=== PATIENT | female | born 1955 | race Caucasian/White ===

== ENCOUNTER 2016-04-05 17:23 | Emergency (ER) | payer MEDICAID, OTHER ==
[2016-04-05 17:30] VITALS: RESP 16
--- NOTE | 2016-04-05 19:08 | EDPHY ---
H & P Stated Complaint: Fell off a bed 04/01;c/o rib pain Time Seen by Provider: 04/05/16 19:08 - Personal History Current Tetanus Diphtheria and Acellular Pertussis (TDAP): Yes - Medical/Surgical History Hx Asthma: No Hx Chronic Respiratory Disease: No Hx Diabetes: No Hx Cardiac Disease: No Hx Renal Disease: No Hx Cirrhosis: No Hx Alcoholism: No Hx HIV/AIDS: No Hx Splenectomy or Spleen Trauma: No Other PMH: IBS, shingles, depression, hypothyroid, GERD - Social History Smoking Status: Former smoker Constitutional: Initial Vital Signs Temperature (C) 36.4 C 04/05/16 17:27 Heart Rate 62 04/05/16 17:27 Respiratory Rate 16 04/05/16 17:27 Blood Pressure 160/81 H 04/05/16 17:27 O2 Sat (%) 98 04/05/16 17:27 O2 Delivery Mode Room Air Allergies/Adverse Reactions: No Allergies [NKDA] Allergy (Verified 04/05/16 17:27) Home Medications: Medication Instructions Recorded Bentyl 01/18/10 Prozac 20 MG (RX) 07/30/14 Levothyroxine 12/26/15 Protonix 12/26/15 Bioidentical Hormones 03/14/16 Hydrocodone/APAP 5/325 [[place] 1 - 2 tab PO Q4H PRN #15 tab 03/14/16 5/325] Ondansetron Odt [Zofran Odt 4 mg 4 mg PO Q4 PRN #6 tab 03/14/16 (*)] Pantoprazole Sodium [Protonix 40mg 40 mg PO 03/14/16 (*)] Oxycodone HCl [Oxyir] 5 mg PO Q4-8PRN #20 capsule 04/05/16 oxyCODONE IR [Oxycodone Ir (*)] 5 mg PO Q4-6PRN PRN #30 tab 04/05/16 Medical Decision Making ED Course/Re-evaluation: CHIEF COMPLAINT: Rib and abdominal pain HISTORY OF PRESENT ILLNESS: The patient is a 60 y/o female complaining of worsening rib and abdominal pain secondary to a fall on 04/01/16, 4 days ago. She says she originally fell on fell on 03/12/16 getting into the bathtub and was ultimately diagnosed with multiple rib fractures on her right side. Four days ago she was assisting in lifting a friend's ill and fell off a bed onto her right side on top of a metal radiator. This worsened her existing rib pain significantly and she now complains of centralized abdominal pain. Her pain is aggravated by breathing and was not alleviated with Advil. REVIEW OF SYSTEMS: A 10 point review of systems was performed and is negative with the exception of the elements mentioned in the history of present illness. PHYSICAL EXAM: HR, BP, O2 Sat, RR. Temp noted General Appearance: Alert, well hydrated, appropriate, and non-toxic appearing. Head: Atraumatic without scalp tenderness or obvious injury Eyes: Pupils equal, round, reactive to light and accommodation, EOMI, no trauma , no injection. Ears: Clear bilaterally, no perforation, normal landmarks Nose: Atraumatic, no rhinorrhea, clear. Throat: There is no erythema or exudates, no lesions, normal tonsils, mucus membranes moist. Neck: Supple, 2+ carotid upstroke, nontender, no lymphadenopathy. Respiratory: No retractions, no distress, no wheezes, and no accessory muscle use. Lungs are clear to auscultation bilaterally. Cardiovascular: Regular rate and rhythm, no murmurs, rubs, or gallops. Bilateral carotid, radial, dorsalis pedis, and posterior tibial pulses intact. Good capillary refill all extremities. Gastrointestinal: Abdomen is soft, nontender, non-distended, no masses, no rebound, no guarding, no peritoneal signs. Musculoskeletal: Normal active ROM of all extremities. Right lateral mid-rib tenderness and bruising. Neurological: Alert, appropriate, and interactive. The patient has normal DTRs and non-focal cranial nerves, motor, sensory, and cerebellar exam. Skin: No rashes, good turgor, no nodules on palpation. Past medical history: Known liver lesion and lungs. Past surgical history: Noncontributory Family history: Noncontributory Social history: Lives in [place] DIAGNOSTICS/PROCEDURES/CRITICAL CARE TIME: Study: CT of the Chest Indication: Pain, trauma Results: CT scan of the chest was obtained. The results of the study are 1. Subacute nondisplaced anterior right 7th, 8th, and 9th rib fractures. 2. No pulmonary contusion or pneumothorax. 3. No acute rib or sternal fracture. The study was read by the radiologist, Dr. Gaspar. I viewed the images myself on the PACS system. Study: CT of the Abdomen/Pelvis Indication: Pain, trauma Results: CT scan of the abdomen was obtained. The results of the study are 1. No solid organ or bowel injury. 2. No free fluid. 3. No acute lumbar spine or pelvic fracture. The study was read by the radiologist, Dr. Gaspar. I viewed the images myself on the PACS system. DIFFERENTIAL DIAGNOSIS: The differential diagnosis for the patient's trauma included but was not limited to rib fractures, pneumothorax, spinal injury, intra-abdominal injury, and intra-thoracic injury. MEDICAL DECISION MAKING: This is a 60 y/o female with a recent history of multiple right rib fractures arriving for evaluation after a repeat injury of her right side from a fall 4 days ago. She complains of worsening rib pain and new abdominal pain. She has some mild tenderness and ecchymosis on her right lateral ribs on exam. Breath sounds are equal bilaterally. No other visible trauma. Plan for CT Chest and CT abdomen to rule out organ injury. She declines narcotic pain medication in the ED, but does request something to manage pain at home. CTs are unchanged from previous per Dr. Gaspar. Patient will be discharged home with rib fracture care instructions and script for OxyIR in addition to ibuprofen instructions. Advised to follow up with her PCP as needed. Return precautions given. She is comfortable with this plan. - Data Points Laboratory Results: 04/05/16 19:32 POC Hgb 14.6 gm/dL (12.3-15.9) POC Hct 43 % (35.5-47.5) POC Sodium 140 mEq/L (134-144) POC Potassium 3.4 mEq/L (3.3-5.0) POC Chloride 101 mEq/L (96-108) POC BUN 19 mg/dL (7-23) POC Creatinine 0.7 mg/dL (0.6-1.2) POC Glucose 129 H mg/dL (70-100) Point of Care Test Results: 04/05/16 19:32 POC Sodium 140 POC Potassium 3.4 POC Chloride 101 POC BUN 19 POC Creatinine 0.7 POC Glucose 129 H Departure - Departure Disposition: Home, Routine, Self-Care Clinical Impression: Rib fractures Qualifiers: Qualifier Code: (S22.41XA) Multiple fractures of ribs, right side, initial encounter for closed fracture Instructions: How to Use an Incentive Spirometer (ED), Rib Fracture (ED) Additional Instructions: 1. Use ibuprofen as prescribed for the next week. 2. Take OxyIR as prescribed when needed for pain. 3. Follow up with your primary care provider for symptoms not improved over the next few weeks. You will likely have pain for several weeks while your fractures heal. 4. Return to the ED for shortness of breath, severe pain, or other worsening of condition. Referrals: Phyllis Herr MD [Medical Doctor] - As per Instructions Prescriptions: oxyCODONE IR [Oxycodone Ir (*)] 5 mg PO Q4-6PRN PRN #30 tab PRN Reason: Pain, Moderate Oxycodone HCl [Oxyir] 5 mg PO Q4-8PRN #20 capsule Report Scribed for: Roberto Carlos Fuentes Report Scribed by: Perla Araujo Date of Report: 04/05/16 Time of Report: 21:01
[2016-04-05] MEDS ORDERED: IOPAMIDOL (ISOVUE-300) 50 ML VIAL IV ONE (19:42)
[2016-04-05] MEDS ORDERED: OXYCODONE/APAP 5/325MG PREPACK#4 BTL TAKEHOME ONE ×2 (20:48→20:55)
--- NOTE | 2016-04-05 20:53 | CT ---
CT Chest With Contrast - April 05, 2016 Indication: Right anterior chest wall pain. Exacerbation of low right rib fractures with recent fall. Technique: 5-mm thick collimated slices were obtained through the chest following uneventful adminis tration of 90 mL Isovue-300 Sagittal multiplanar reconstructions were performed of the thoracic spine . Dose reduction techniques were utilized. Comparison: Right rib series dated March 21, [address] abdomen and pelvis from July 30, 2014. Findings: Subacute nondisplaced anterior right 7th, 8th, and 9th rib fractures are present at the cos tochondral junction (similar to the right rib series from March 2016). No new rib fractures. The lungs are well aerated and clear. No pneumothorax, pleural effusion, or pulmonary contusion. A be nign 6-mm calcified granuloma is present in the left lower lobe. The heart size is normal. No pericardial effusion. Thoracic aorta is normal. No mediastinal hematoma or evidence of acute aortic injury. No lymphadenopathy or mass throughout the axilla, mediastinum or pulmonary veronica. Impression: 1. Subacute nondisplaced anterior right 7th, 8th, and 9th rib fractures. 2. No pulmonary contusion or pneumothorax. 3. No acute rib or sternal fracture. Comment: The results were discussed with Dr. Roberto Carlos Fuentes at 8:45 p.m. on April 05, 2016.
--- NOTE | 2016-04-05 20:55 | CT ---
CT Scan of the Abdomen and Pelvis (With Contrast) - April 05, 2016 Indication: Right upper quadrant pain. Fall. Technique: No oral or rectal contrast. 90 mL of Isovue 300 were given intravenously by machine power injection. Multidetector helical CT imaging was performed from the diaphragm to the symphysis pubis . Dose reduction techniques were utilized. Comparison: CT abdomen and pelvis dated July 30, 2014 and right rib series dated March 21, 2016. Findings: The liver homogeneously enhances. No liver laceration, contusion, or free fluid. Well circu mscribed benign fluid attenuation cysts in the lateral segment left lobe and a 1.6-cm hemangioma in t he dome of the right lobe are unchanged since July 2014. The spleen, pancreas, gallbladder, adrenal glands, and kidneys are normal with no evidence of solid o rgan injury. Small 0.8-cm fat attenuation angiomyolipomas in the posterior left mid kidney and inferi or right kidney are unchanged since 2014. No nephrolithiasis or hydroureteronephrosis. Urinary bladde r is nearly completely empty. No adnexal mass. Bowel pattern is normal. No mesenteric edema or pneumoperitoneum. Moderate constipation. No lumbar spine or pelvic fracture. Impression: 1. No solid organ or bowel injury. 2. No free fluid. 3. No acute lumbar spine or pelvic fracture. Comment: Results were discussed with Dr. Roberto Carlos Fuentes at 8:45 p.m. on April 05, 2016.
[2016-04-05 21:24] VITALS: BP 138/80; PULSE 85; TEMP 98.8; O2SAT 99
== END 2016-04-05 21:29 | disposition home or self-care (01) ==
DX: S22.41XA Multiple fractures of ribs, right side, initial encounter for closed fracture (principal); Z87.891 Personal history of nicotine dependence; W06.XXXA Fall from bed, initial encounter; Y99.8 Other external cause status; Y93.89 Activity, other specified
CPT/HCPCS: 82947-QW; 86694-90; Q9967

== ENCOUNTER 2016-05-03 15:40 | Emergency (ER) | payer MEDICAID ==
[2016-05-03 15:49] VITALS: BP 145/79; PULSE 69; RESP 16; TEMP 97.3; O2SAT 97
--- NOTE | 2016-05-03 15:58 | EDPHY ---
H & P Stated Complaint: L shoulder injury 2 wks ago, seen here, requesting CT Time Seen by Provider: 05/03/16 15:56 HPI/ROS: CHIEF COMPLAINT: Left shoulder injury. HISTORY OF PRESENT ILLNESS: This patient is a 60 year old female who presents to the Emergency Department complaining of left shoulder pain secondary to two falls in March of 2016. She first fell in the bathtub on 03/12/2016 and was seen in the Emergency Department two days following the initial injury. She had an additional fall in late March and was seen in the ED again on 04/05/2016; CT scans were negative for acute injury apart from two fractured ribs. She tells me that she had left shoulder pain secondary to her falls but declined any imaging of her shoulder during prior visits. Today, she was referred to the ED by her PCP because her shoulder pain is not improving. She describes her pain as moderate and localized to the posterior aspect of her shoulder with radiation down her upper arm, exacerbated with external rotation. She has been taking Advil for pain without significant improvement; last dose this morning. Denies any sensory changes. The patient also complains of pain bilaterally to her pelvis when sitting. Her PCP ordered an x-ray of her pelvis which the patient brings with her to her visit today. REVIEW OF SYSTEMS: Aside from elements discussed in the HPI, a comprehensive 10-point review of systems was reviewed and is negative. PAST MEDICAL HISTORY: IBS, shingles, depression, hypothyroid, GERD, ortho surgery, hysterectomy, fibrous dysplasia sinuses SOCIAL HISTORY: Recently returned from [place]. Traveling to [place] in two weeks. PHYSICAL EXAM: GENERAL APPEARANCE: Well-appearing, well-nourished resting comfortably.. FOCUSED EXAM OF THE LEFT SHOULDER: Swelling across the anterior humeral head. Limited external rotation secondary to pain. Positive Mortensen sign. Abduction and adduction of the shoulder is painful and weak. Full flexion and extension without pain. NEUROVASCULAR EXAM: Good capillary refill, normal motor exam, normal neurologic exam. Portions of this note were transcribed by a medical care administrator. I personally performed a history, physical exam, medical decision making, and confirmed accuracy of information the transcribed note. - Personal History Current Tetanus/Diphtheria Vaccine: Yes Current Tetanus Diphtheria and Acellular Pertussis (TDAP): Yes Tetanus Vaccine Date: 2013 - Medical/Surgical History Hx Asthma: No Hx Chronic Respiratory Disease: No Hx Diabetes: No Hx Cardiac Disease: No Hx Renal Disease: No Hx Cirrhosis: No Hx Alcoholism: No Hx HIV/AIDS: No Hx Splenectomy or Spleen Trauma: No Other PMH: IBS, shingles, depression, hypothyroid, GERD, ortho surgery, hysterectomy, fibrous dysplasia sinuses - Social History Smoking Status: Former smoker Constitutional: Initial Vital Signs Temperature (C) 36.3 C 05/03/16 15:44 Heart Rate 69 05/03/16 15:44 Respiratory Rate 16 05/03/16 15:44 Blood Pressure 145/79 H 05/03/16 15:44 O2 Sat (%) 97 05/03/16 15:44 O2 Delivery Mode Room Air Allergies/Adverse Reactions: No Allergies [NKDA] Allergy (Verified 05/03/16 15:42) Home Medications: Medication Instructions Recorded Bentyl 01/18/10 Prozac 20 MG (RX) 07/30/14 Levothyroxine 12/26/15 Protonix 12/26/15 Bioidentical Hormones 03/14/16 Oxycodone HCl [Oxyir] 5 mg PO Q4-8PRN #20 capsule 04/05/16 Hydrocodone/APAP 5/325 [[place] 1 tab PO Q6H PRN #10 tab 05/03/16 5/325 (RX)] Medical Decision Making - Diagnostics Imaging: Study: X-ray of the pelvis Indication: Pain, prior trauma Results: X-ray of the pelvis was obtained. The results of the study are: No source for lower pelvic pain identified. Considering the chronic symptoms, MRI might be helpful. The study was read by the radiologist, Dr. Linus Wolfe. I viewed the images myself on the PACS system. Study: MRI of the left shoulder Indication: Pain, prior trauma Results: MRI of the left shoulder was obtained. The results of the study are: 1. Negative for fracture. 2. Negative for effusion. 3. Slap tear of the labrum. 4. Supraspinatus and biceps tendinitis. The study was read by the radiologist, Dr. Linus Wolfe. I viewed the images ED Course/Re-evaluation: Plan for MRI of the left shoulder and x-ray of the pelvis. 1611: 60mg IM Toradol administered for pain. 1848: MRI results reported to me by Dr. Linus Wolfe, radiologist. 0: I discussed imaging results with the patient as well as my recommendation that she follow-up with an orthopedist. She will be given [place] to use for severe pain prior to her follow-up appointment. She is agreeable to this plan. She will be discharged home in good condition. Differential Diagnosis: Differential diagnosis for the patient's presenting complaint was considered including but not limited to shoulder sprain, rotator cuff tear injury, impingement syndrome, AC separation, infection. - Data Points Medications Given: Discontinued Medications Ketorolac Tromethamine (Toradol) 60 mg IM EDNOW ONE Stop: 05/03/16 16:11 Last Admin: 05/03/16 16:30 Dose: 60 mg Departure - Departure Disposition: Home, Routine, Self-Care Clinical Impression: SLAP shoulder tear Condition: Good Instructions: Rotator Cuff Injury (ED) Additional Instructions: 1. Call to schedule a follow-up appointment with an orthopedist. We have referred you to our on-call orthopedist, Dr. Luna. 2. I recommend Ibuprofen (Motrin, Advil) or Naproxen Sodium (Aleve) for pain and anti-inflammatory effects. You may take either one, but do not take both. Your dose is: Ibuprofen 600 mg every 6-8 hours with food. OR Naproxen Sodium (Aleve) 220 mg every 12 hours. 3. Take [place] as directed, as needed for severe pain. 4. Return to the Emergency Department if you experience sensation changes to your hand or arm, severe pain or worsening swelling, or other serious concerns. Referrals: Bobby Luna MD [Medical Doctor] - As per Instructions Prescriptions: Hydrocodone/APAP 5/325 [[place] 5/325 (RX)] 1 tab PO Q6H PRN #10 tab PRN Reason: Pain Report Scribed for: Lindsay Roland Report Scribed by: Maryanne Ly Date of Report: 05/03/16 Time of Report: 16:12
[2016-05-03] MEDS ORDERED: KETOROLAC 30 MG/1 ML SDV IM ONE (16:10)
--- NOTE | 2016-05-03 17:48 | DX ---
AP Pelvis History: Pain x2 months Comparison: None Findings: The pelvic ring is intact. The SI joints, hip joints and pubic symphysis look normal. There are small benign calcifications/spurs around each greater and lesser trochanter consistent with citlali te trauma and/or chronic tug injury. Overall mineralization is normal. Impression: No source for lower pelvic pain identified. Considering the chronic symptoms, MRI might b e helpful.
--- NOTE | 2016-05-04 08:46 | MR ---
MRI Upper Extremity, Left Shoulder History: Shoulder pain. Recent fall. Technique: MRI was performed of the left shoulder using a 3 Loan MRI system. Oblique coronal, obliqu e sagittal, and axial images were obtained with standard imaging sequences. Findings: Acromioclavicular Region: Mild degenerative change is seen in the acromioclavicular joint. Anterior c urve and lateral downslope to the acromion. Mild subacromial fluid collection. Rotator Cuff: Mild abnormal signal intensity is seen in the distal supraspinatus and infraspinatus te ndon. Mild bursal surface fraying in the distal supraspinatus tendon with less than 25% attenuation. No significant attenuation in the infraspinatus tendon. Teres minor is unremarkable. Subscapularis is unremarkable. Biceps tendon: Long head biceps tendon is seen within the bicipital groove. Minimal abnormal signal i ntensity in the intraarticular long head biceps tendon without attenuation. Glenohumeral Joint: There is fraying and partial tear superior labrum in the 12 o'clock position. Thi s may extend to the superior aspect of the anterior labrum versus an adjacent normal variant sublabra l foramen. No evidence for displaced labral tear. No evidence for an articular cartilage defect of th e glenohumeral joint. No significant glenohumeral joint effusion. General: No evidence for axillary lymphadenopathy. No evidence for Hill-Sachs deformity. Impression: 1. Mild tendinopathy distal supraspinatus tendon with mild bursal surface fraying with minimal attenu ation. Mild subacromial bursitis. 2. Fraying and small partial tear superior labrum which may extend to the superior aspect of the ante rior labrum versus adjacent normal variant sublabral foramen. 3. Minimal tendinopathy intraarticular long head biceps tendon. 4. Mild degenerative change, acromioclavicular joint. Anterior curve and lateral downslope to the acr omion. Preliminary results called to Dr. Lindsay Roland at [address] Lnius Wolfe on May 03, 2016.
== END 2016-05-03 19:39 | disposition home or self-care (01) ==
DX: S43.432D Superior glenoid labrum lesion of left shoulder, subsequent encounter (principal); Z87.891 Personal history of nicotine dependence; W18.39XD Other fall on same level, subsequent encounter
CPT/HCPCS: J1885

== ENCOUNTER → 2016-05-07 | Outpatient (CLI) | payer MEDICAID ==
--- NOTE | 2016-05-07 17:13 | MA ---
Screening Digital Mammogram with iCAD Analysis Clinical Indications: 60-year-old female with no indicated family history of breast cancer, taking ho rmone supplementation, and presenting for routine annual mammographic screening. The patient indicate s that there is some soreness in the breasts, left greater than right, which may be muscle-related fr om a shoulder and/or rib injury. Technique: Standard cephalocaudal projections are obtained. Digital breast tomosynthesis was performe d in the MLO projection with reconstruction at 1.0 mm slice thickness, and composite MLO views were r econstructed. This examination is processed by the iCAD computer aided detection system. Comparison Studies: Bilateral digital mammography, dated to 416, May 09, 2014, April 02, 2013, June 20, 2011, and April 12, 2010. Breast Density: Type C (Heterogeneously dense). Findings: CAD was reviewed, and is negative. There are no new masses, suspicious microcalcifications, or secondary signs of malignancy identified. There has been no significant change in the appearance of either breast. Impression: Negative mammography. BI-RADS Category 1. Recommendation: Routine mammographic screening in one year as long as physical examination is negativ e in this patient with heterogeneously dense breast parenchyma. [facility] will send a result letter to the patient. Negative mammography should not preclude additional workup of a clinically suspicious finding. The patient's information is entered into a reminder system with a target due date for her next mammo gram.
== END ==
LOC: FIMAGING 15:00
DX: Z12.31 Encounter for screening mammogram for malignant neoplasm of breast (principal)
CPT/HCPCS: G0202

== ENCOUNTER → 2017-02-06 | Outpatient (CLI) | payer MEDICAID | LOC: BMCIMAGING 07:25 | PROVIDERS: ATTEND Family Medicine | DX: R10.31 Right lower quadrant pain (principal) ==

== ENCOUNTER 2017-03-04 18:01 | Emergency (ER) | payer MEDICAID ==
[2017-03-04 18:12] VITALS: TEMP 98.1
[2017-03-04] MEDS ORDERED: ONDANSETRON DISINTEGRATING 4 MG TAB PO ONE (18:15)
[2017-03-04] MEDS ORDERED: LORazepam 1 MG TAB PO ONE (18:15)
[2017-03-04] MEDS ORDERED: OXYCODONE/APAP 5/325MG PREPACK#4 BTL TAKEHOME ONE (19:15)
[2017-03-04] MEDS ORDERED: AMOXICILLIN/CLAVULANATE POT 875/125 MG TAB PO ONE (19:15)
[2017-03-04] MEDS ORDERED: IBUPROFEN 600 MG TAB PO ONE (19:15)
[2017-03-04] MEDS ORDERED: OXYCODONE/APAP 5/325 TAB PO ONE (19:15)
--- NOTE | 2017-03-04 19:18 | EDPHY ---
H & P HPI/ROS: Chief complaint: Foreign body in the right lower leg History of present illness: This is a 61-year-old female who presents to the emergency department for evaluation of a puncture wound to her right lower leg with concerned that there is retained material. Patient was hiking earlier today when she struck her right lower leg against poison sumac. She saw a piece of wood get stuck in her right lower leg just above the ankle. She was able to pull out a piece of wood. Afterwards there was bleeding. Since then she has had severe pain. It hurts to move her ankle or ambulate. She is concerned wood is stuck in there. She denies other associated signs or symptoms. Smoking Status: Former smoker Physical Exam: General: Alert, nontoxic Skin: There is a tiny puncture wound to the anterior surface of the right lower leg just above the ankle. Musculoskeletal: Patient is moving the ankle in all celestin and the knee in all celestin although moving the ankle causes pain. Vascular: DP and PT pulses 2+. Neurologic: Sensation intact throughout the right lower leg and foot. Constitutional: Initial Vital Signs Temperature (C) 36.7 C 03/04/17 18:01 Heart Rate 81 03/04/17 18:01 Respiratory Rate 18 03/04/17 18:01 Blood Pressure 119/71 03/04/17 18:01 O2 Sat (%) 100 03/04/17 18:01 O2 Delivery Mode Room Air Allergies/Adverse Reactions: No Allergies [NKDA] Allergy (Verified 05/03/16 15:42) Home Medications: Medication Instructions Recorded Bentyl 01/18/10 Prozac 20 MG (RX) 07/30/14 Levothyroxine 12/26/15 Protonix 12/26/15 Bioidentical Hormones 03/14/16 Oxycodone HCl [Oxyir] 5 mg PO Q4-8PRN #20 capsule 04/05/16 Hydrocodone/APAP 5/325 [[place] 1 tab PO Q6H PRN #10 tab 05/03/16 5/325 (RX)] Amoxicillin/Clavulanate Pot 875 mg PO BID #10 tab 03/04/17 [Augmentin 875 MG TAB (*)] oxyCODONE/APAP 5/325 [Percocet 1 tab PO Q6H #10 tab 03/04/17 5/325 (*)] MDM/Departure - MDM Imaging Results: Imaging Impressions Extremity Ultrasound 03/04/17 18:17 Impression: 1. 1 mm foreign object located within the tibialis tendon fibers deep to the anterior calf puncture site.. Exam results discussed with Jesus Tipton PA-C, at 6:50 PM. Imaging: Discussed imaging studies w/ director targeted marketing Radiologist Procedures: The wound was anesthetized with lidocaine and explored and I am unable to find a foreign body. Procedure: Splint placement. A posterior short-leg splint was applied. After application of the splint I returned and re-examined the patient. The splint was adequately immobilizing the joint and distal to the splint the patient's circulation and sensation was intact. Patient given crutches and extensive instructions on how to use them Medications Given: Discontinued Medications Amoxicillin/Clavulanate Potassium (Augmentin 875mg) 875 mg PO EDNOW ONE PRN Reason: Protocol Stop: 03/04/17 19:16 Last Admin: 03/04/17 19:32 Dose: 875 mg Ibuprofen (Motrin) 600 mg PO EDNOW ONE Stop: 03/04/17 19:16 Last Admin: 03/04/17 19:32 Dose: 600 mg Lorazepam (Ativan) 1 mg PO EDNOW ONE Stop: 03/04/17 18:16 Last Admin: 03/04/17 18:18 Dose: 1 mg Ondansetron HCl (Zofran Odt) 4 mg PO EDNOW ONE Stop: 03/04/17 18:16 Last Admin: 03/04/17 18:18 Dose: 4 mg Oxycodone/Acetaminophen (Percocet 5/325) 1 tab PO EDNOW ONE Stop: 03/04/17 19:16 Last Admin: 03/04/17 19:32 Dose: 1 tab Oxycodone/Acetaminophen (Percocet 5/325mg Prepack#4) 1 btl TAKEHOME EDNOW ONE Stop: 03/04/17 19:16 Last Admin: 03/04/17 19:47 Dose: 1 btl ED Course/Re-evaluation: Patient is discussed with my primary supervising physician Dr. Geno Bhat. Patient presents to the emergency department for pain at the site of a puncture wound from earlier today. Her right lower extremity is neurovascularly intact. I am unable to find a foreign body on exploration of the wound. Although ultrasound does confirm a 1 mm piece of wood stuck in one of her tendons. I have consulted with Orthopedics, Dr. Giancarlo La. He recommends patient be splinted and placed on crutches and placed on antibiotics. She can follow up in his clinic for exploration and removal of the foreign body. She is splinted and placed on crutches and given instructions on how to use these. She is started on Augmentin. She is reporting extreme pain. She feels she needs narcotics to control the pain. She reports Percocet works well for her. She is given a short course of Percocet. Home care is discussed. Return precautions are given. Patient voiced understanding and agreement with plan. - Depart Disposition: Home, Routine, Self-Care Clinical Impression: Skin foreign body Condition: Good Instructions: Oxycodone/Acetaminophen (By mouth), Amoxicillin/Clavulanate Potassium (By mouth), Soft Tissue Foreign Body (ED) Additional Instructions: Please follow-up with Dr. Giancarlo La on Monday for continued evaluation and care Take antibiotics as prescribed. I also recommend you take a probiotic with the antibiotics. In regards to pain control see the following: Use ibuprofen [600] mg [3] times a day for the next 2-3 days for pain In addition You have been prescribed Percocet for pain. You can take 1 tablet every 6 hr. Percocet contains Tylenol, do not take extra Tylenol/acetaminophen/ Apap with it. It is sedating. If symptoms worsen or new symptoms develop return to the emergency room for recheck Prescriptions: Amoxicillin/Clavulanate Pot [Augmentin 875 MG TAB (*)] 875 mg PO BID #10 tab oxyCODONE/APAP 5/325 [Percocet 5/325 (*)] 1 tab PO Q6H #10 tab Referrals: Patient,NotPresent [Unknown] - As per Instructions Giancarlo La MD [Medical Doctor] - As per Instructions
[2017-03-04 20:12] VITALS: BP 168/80; PULSE 65; RESP 18; O2SAT 97
== END 2017-03-04 20:12 | disposition home or self-care (01) ==
LOC: EDUNIT#
PROC: 0JCN0ZZ Extirpation of Matter from Right Lower Leg Subcutaneous Tissue and Fascia, Open Approach (ICD-10-PCS; principal; 2017-03-04)
DX: S80.851A Superficial foreign body, right lower leg, initial encounter (principal); Z87.891 Personal history of nicotine dependence; W45.8XXA Other foreign body or object entering through skin, initial encounter; Y99.8 Other external cause status; Y93.01 Activity, walking, marching and hiking

== ENCOUNTER → 2017-06-01 | Outpatient (CLI) | payer MEDICAID | LOC: FIMAGING 12:11 | PROVIDERS: ATTEND Midwife | DX: Z12.31 Encounter for screening mammogram for malignant neoplasm of breast (principal) ==